=== PATIENT | male | born 1970 | race American Indian/Alaskan Native ===

== ENCOUNTER 2018-03-24 07:42 | Emergency (ER) | payer MEDICARE ==
[2018-03-24 08:10] VITALS: BP 140/95
--- NOTE | 2018-03-24 09:23 | XRay Report ---
XRAY RIGHT FOOT THREE VIEWS: 03/24/18 07:42:00 CLINICAL: Right foot injury and pain. FINDINGS: Diffuse soft tissue edema of the forefoot and mid foot. No soft tissue air or firm body. Oblique mildly displaced fractures of the distal second and third metatarsals with callus. No other fractures are identified. The joint spaces are normal. A small Achilles enthesophyte. IMPRESSION: Subacute traumatic mildly displaced closed healing fractures of the distal second and third metatarsals. No acute fracture or dislocation.
--- NOTE | 2018-03-24 09:24 | XRay Report ---
XRAY RIGHT ANKLE THREE VIEWS: 03/24/18 07:42:00 CLINICAL: Injury and pain. FINDINGS: The ankle mortise is intact.No fracture or dislocation. 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 The soft tissues are or foreign body. 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
--- NOTE | 2018-03-24 10:16 | Emergency Department Report ---
ED Lower Extremity HPI - General Chief Complaint: Extremity Injury, Lower Stated Complaint: THINK FOOT IS BROKE Time Seen by Provider: 03/24/18 10:01 Source: patient Mode of arrival: Ambulatory Limitations: No Limitations - History of Present Illness Initial Comments: Mr. Gannon is a very pleasant 47 yo male who injured his right ankle and foot one month ago on Mother's day. He fell 6 feet off a ladder onto his right foot and ankle. He had mild pain and swelling. He has been able to ambulate with minimal difficulty. MD Complaint: ankle injury, foot injury, fall -: month(s) (1) Injury: Ankle: Right, Foot: Right Place: home Severity: mild Worsens With: weight bearing, movement Context: fall Associated Symptoms: swelling, ambulatory - Related Data Allergies Allergy/AdvReac Type Severity Reaction Status Date / Time No Known Allergies Allergy Unverified 03/24/18 08:07 ED Review of Systems ROS: Stated complaint: THINK FOOT IS BROKE Other details as noted in HPI Constitutional: denies: fever, malaise Respiratory: denies: cough Cardiovascular: denies: chest pain Neurological: denies: weakness, numbness, paresthesias ED Past Medical Hx - Past Medical History Previous Medical History?: No - Surgical History Past Surgical History?: Yes Additional Surgical History: BACK AND NECK SURGERY - Social History Smoking Status: Current Every Day Smoker Substance Use Type: Alcohol ED Physical Exam - General Limitations: No Limitations General appearance: alert, in no apparent distress - Head Head exam: Present: atraumatic, normocephalic - Extremities Exam Extremities exam: Present: tenderness, pedal edema, joint swelling, other ( intact pedal pulse) - Neurological Exam Neurological exam: Present: alert, oriented X3 - Psychiatric Psychiatric exam: Present: normal affect, normal mood - Skin Skin exam: Present: warm, dry, intact, normal color - Other Other exam information: +right foot/ankle edema no knee tenderness ED Course Vital Signs 03/24/18 08:07 Temperature 98 F Pulse Rate 70 Respiratory 18 Rate Blood Pressure 140/95 O2 Sat by Pulse 98 Oximetry ED Lower Extremity MDM - Radiology Data Radiology results: report reviewed, image reviewed I reviewed images with patient. Patient has degenerative changes in the right ankle. He has subacute second and third metatarsal fractures - Medical Decision Making Mr. Gannon presents with subacute fractures of the second and third metatarsals after fall off ladder one month ago. Possible avulsion fracture of the talus with reported degenerative changes. Patient politely declined splint or walking boot. I have referred him to orthopedic surgeon. 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 Critical care attestation.: If time is entered above; I have spent that time in minutes in the direct care of this critically ill patient, excluding procedure time. ED Disposition Clinical Impression: Metatarsal stress fracture of right foot with delayed healing, Ankle injury Disposition: TO HOME OR SELFCARE Is pt being admited?: No Does the pt Need Aspirin: No Condition: Stable Instructions: Foot Fracture in Adults (ED) Referrals: PRADIP HOLT MD [Staff Physician] - 2-3 Days Time of Disposition: 10:19
== END 2018-03-24 10:30 | disposition home or self-care (01) ==
LOC: ED 07:42
DX: S92.321G Displaced fracture of second metatarsal bone, right foot, subsequent encounter for fracture with delayed healing (principal); S92.331G Displaced fracture of third metatarsal bone, right foot, subsequent encounter for fracture with delayed healing; W11.XXXD Fall on and from ladder, subsequent encounter; F17.200 Nicotine dependence, unspecified, uncomplicated
CPT/HCPCS: 99283